=== PATIENT | female | born 1975 | race Hispanic/Latino ===

== ENCOUNTER → 2017-08-30 | Day surgery (SDC) | payer OTHER ==
[~2017-08-30] VITALS: Ht 160 cm; Wt 72.6 kg
[~2017-08-30] MED LIST: MELOXICAM15 MG PO; PREPARATION H HYDR1% TOP; TOPICAINE 4%1 TBE TOP; VITAMIN D50000 IU PO
--- NOTE | 2017-08-31 12:44 | Operative Report ---
Operative/Inv Procedure Report Surgery Date: 08/30/17 Name of Procedure: D&C hysteroscopy Pre-Operative Diagnosis: Metromenorrhagia Post-Operative Diagnosis: Same fibroid uterus Estimated Blood Loss: less than 50ml Surgeon/Gas Station Manager: Adonay REINOSO,Maame Cavazos Anesthesia: moderate sedation Operative/Procedure Note Note: Procedure note patient was taken the operating room placed on position after adequate anesthesia patient placed in dorsolithotomy position the vagina was prepped draped fashion bladder was catheterized examination anesthesia performed at this point CO2 tenaculum was placed on the anterior lip of the cervix with after the ruvalcaba speculum was placed into the vagina gentle downward traction was performed to 29 Hegar to allow for the insertion hysteroscope with insertion of the hysteroscope was evident that there is a fibroid approximately 4 cm in at the end of the cervix blocking the canal. On at this point the sharp curettage of the endocervix was performed and a Pipelle was used for curettage and a sample of the endometrial lining on since removed from the vagina the patient was returned spine position to awake from anesthesia and transferred recovery room awake alert counts correct Findings: 12Week fibroid uterus no adnexal masses there is a fibroid blocking the cervical canal
== END ==
LOC: STS 02:51
DX: N92.1 Excessive and frequent menstruation with irregular cycle (principal); D25.9 Leiomyoma of uterus, unspecified; N85.9 Noninflammatory disorder of uterus, unspecified; K58.9 Irritable bowel syndrome, unspecified
CPT/HCPCS: 81025; 88305; J2250

== ENCOUNTER 2017-09-12 09:43 | Emergency (ER) | payer OTHER ==
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
[2017-09-12 10:47] LABS: ABSOLUTE BASOPHIL COUNT 0 /CUMM (0.0-0.2); ABSOLUTE EOSINOPHIL COUNT 0.1 /CUMM (0.0-0.7); ABSOLUTE GRANULOCYTE CT 3.7 /CUMM (1.4-6.5); ABSOLUTE LYMPH COUNT 1.2 /CUMM (1.2-3.4); ABSOLUTE MONOCYTE COUNT 0.4 /CUMM (0.10-0.60); BASOPHIL % 0.4 % (0.0-2.0); EOSINOPHIL % 1.2 % (0-5); GRANULOCYTE % 69.1 % (42.2-75.2); HEMATOCRIT 39.3 % (37-47); MEAN CORPUSCULAR HGB CONC 34.5 G/DL (33.0-37.0); MEAN PLATELET VOLUME 7.9 FL (7.4-10.4); PLATELET COUNT 265 /CUMM (130-400); RBC DISTRIBUTION WIDTH 12.2 % (11.5-14.5); RED BLOOD CELL CT 4.37 /CUMM (4.20-5.40); WHITE BLOOD CELL COUNT 5.3 /CUMM (4.8-10.8)
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
[2017-09-12 12:34] VITALS: BP 126/88
== END 2017-09-12 12:34 ==
LOC: ERH 09:43
PROVIDERS: Physician Assistant Medical
DX: S46.912A Strain of unspecified muscle, fascia and tendon at shoulder and upper arm level, left arm, initial encounter (principal); R55 Syncope and collapse; V49.40XA Driver injured in collision with unspecified motor vehicles in traffic accident, initial encounter; Y92.9 Unspecified place or not applicable
CPT/HCPCS: 72050; 73030-LT; 73130-RT; 93005; 93010